=== PATIENT | female | born 1975 | race Caucasian/White ===

== ENCOUNTER 2020-03-27 10:14 | Emergency (ER) | payer OTHER ==
[~2020-03-27] VITALS: Ht 167.6 cm; Wt 59.0 kg
[~2020-03-27 10:14] MED LIST: NAPR500T14 PO; SEPTRA DS PO; SPRINTEC1 TAB; URETRON DS1 TAB PO
== END 2020-03-27 16:18 | disposition home or self-care (01) ==
LOC: ER 10:14
DX: R13.19 Other dysphagia (principal); K29.60 Other gastritis without bleeding; Z03.818 Encounter for observation for suspected exposure to other biological agents ruled out